=== PATIENT | female | born 1990 | race Caucasian/White ===

== ENCOUNTER → 2017-05-06 | Outpatient (CLI) | payer OTHER | END | disposition home or self-care (01) | LOC: LABWHC1 08:58 | PROVIDERS: ATTEND Family Medicine | DX: Z00.00 Encounter for general adult medical examination without abnormal findings (principal); Z68.36 Body mass index [BMI] 36.0-36.9, adult | CPT/HCPCS: 36415; 80061; 82947; 84443 ==